=== PATIENT | female | born 1960 | race Caucasian/White ===

== ENCOUNTER 2018-01-07 13:09 | Emergency (ER) | payer OTHER ==
[~2018-01-07] VITALS: Ht 172.7 cm; Wt 104.6 kg
[2018-01-07 13:31] VITALS: Ht 172.7 cm; Wt 104.6 kg
[2018-01-07] MEDS ORDERED: SODIUM CHLORIDE 0.9% 500ML 500 ML IV STA (13:46)
[2018-01-07] MEDS ORDERED: ONDANSETRON INJ 2 MG/ML 2 ML VIAL IV STA (13:46)
[2018-01-07] MEDS ORDERED: METHYLPREDNISOLONE 125 MG VIAL IV STA (13:46)
[2018-01-07] MEDS ORDERED: KETOROLAC TROMETHAMINE 30 MG/ML VIAL IV STA (13:46)
[2018-01-07] MEDS ORDERED: ACETAMINOPHEN 500 MG TAB PO STA (13:46)
--- NOTE | 2018-01-07 13:50 | EMERGENCY ROOM VISIT NOTE ---
History First contact with patient: 13:36 Chief Complaint: FLU LIKE SX Stated Complaint: FLU History of Present Illness The patient is a 57 year old female who presents to the Emergency Room with complaints of flulike symptoms for the last 3 days. The patient also reports a fever 101F. She has had a mildly productive cough. The patient has a history of asthma. She started a Z-Steve and has been taking her nebulizer treatments with minimal relief. She is feeling fairly winded particularly with exertion. She denies any chest pain. She has been nauseated without vomiting. Review of Systems 10 system review performed and negative unless noted in HPI or below Past Medical/Surgical History Asthma, fibromyalgia Social History Smoking Status: Former Smoker Housing Status: lives with significant other Current/Historical Medications Scheduled Canagliflozin (Invokana), Unknown Dose PO DAILY Fluticasone Prop/Salmeterol (Advair Diskus 100/50 60 Dose), 1 PUFF INH BID Gabapentin (Neurontin), 800 MG PO BID Oseltamivir (Tamiflu), 75 MG PO BID Pantoprazole (Protonix), 20 MG PO BID Prednisone (Prednisone), 50 MG PO DAILY Pregabalin (Lyrica), 75 MG PO BID Propranolol (Inderal), 20 MG PO BID Ranitidine Hcl (Zantac), 300 MG PO HS Sitagliptin (Januvia), Unknown Dose PO DAILY Scheduled PRN Albuterol Sulf (Albuterol Sulfate), 1 VIAL INH Q4 PRN for SOB/Wheezing Ipratropium-Albuterol (Combivent Respimat), 1 PUFFS INH QID PRN for SOB/Wheezing Physical Exam Vital Signs Date Time Temp Pulse Resp B/P (MAP) Pulse Ox O2 Delivery O2 Flow Rate FiO2 01/07/18 16:10 89 20 130/64 91 01/07/18 15:53 90 24 95 Nasal Cannula 3.0 01/07/18 15:46 100 24 88 Room Air 01/07/18 15:18 36.6 98 18 139/51 95 Nasal Cannula 3.0 01/07/18 14:36 92 Nasal Cannula 3.0 01/07/18 14:34 91 Nasal Cannula 2.0 01/07/18 14:33 89 Room Air 01/07/18 14:27 101 01/07/18 14:20 98 21 143/65 97 Nebulizer 01/07/18 13:31 37.8 111 20 138/64 92 Room Air Physical Exam VITALS: Vitals are noted on the nurse's note and reviewed by myself. Vital signs stable. GENERAL: 57-year-old female, mildly ill in appearance, obese,, in no acute distress, nondiaphoretic, well-developed well-nourished. SKIN: The skin was without rashes, erythema, edema, or bruising. HEAD: Normocephalic atraumatic. MOUTH: Mucous membranes slightly dry NECK: Supple without nuchal rigidity. No lymphadenopathy. Cervical spine is nontender. No JVD. HEART: Regular rate and rhythm without murmurs gallops or rubs. LUNGS: Decreased breath sounds at the bases bilaterally. Mild diffuse wheeze. I'll tachypnea. ABDOMEN: Positive bowel sounds x 4.Soft, nontender, without organomegaly. No guarding or rebound tenderness. MUSCULOSKELETAL: No muscle atrophy, erythema, or edema noted. . Strength 5/5 throughout. NEURO: Patient was alert and oriented to person place and time. Normal sensation to touch. No focal neurological deficits. Medical Decision & Procedures ER Provider Diagnostic Interpretation: CXR IMPRESSION: No acute process. Minimal platelike atelectasis left base. The above report was generated using voice recognition software. It may contain grammatical, syntax or spelling errors. Electronically signed by: Ron Crockett M.D. 01/07/2018 3:15 PM Dictated Date/Time: 01/07/2018 3:15 PM Laboratory Results 01/07/18 14:00 Red Blood Count 4.78, Mean Corpuscular Volume 88.9, Mean Corpuscular Hemoglobin 29.3, Mean Corpuscular Hemoglobin Concent 32.9, Mean Platelet Volume 9.6, Neutrophils (%) (Auto) 73.5, Lymphocytes (%) (Auto) 17.1, Monocytes (%) (Auto) 7.6, Eosinophils (%) (Auto) 1.2, Basophils (%) (Auto) 0.2, Neutrophils # (Auto) 6.07, Lymphocytes # (Auto) 1.41, Monocytes # (Auto) 0.63, Eosinophils # (Auto) 0.10, Basophils # (Auto) 0.02 01/07/18 14:00 Test 01/07/18 14:00 01/07/18 14:25 01/07/18 15:25 White Blood Count 8.26 K/uL (4.8-10.8) Red Blood Count 4.78 M/uL (4.2-5.4) Hemoglobin 14.0 g/dL (12.0-16.0) Hematocrit 42.5 % (37-47) Mean Corpuscular Volume 88.9 fL (80-100) Mean Corpuscular Hemoglobin 29.3 pg (25-34) Mean Corpuscular Hemoglobin Concent 32.9 g/dl (32-36) Platelet Count 134 K/uL (130-400) Mean Platelet Volume 9.6 fL (7.4-10.4) Neutrophils (%) (Auto) 73.5 % Lymphocytes (%) (Auto) 17.1 % Monocytes (%) (Auto) 7.6 % Eosinophils (%) (Auto) 1.2 % Basophils (%) (Auto) 0.2 % Neutrophils # (Auto) 6.07 K/uL (1.4-6.5) Lymphocytes # (Auto) 1.41 K/uL (1.2-3.4) Monocytes # (Auto) 0.63 K/uL (0.11-0.59) Eosinophils # (Auto) 0.10 K/uL (0-0.5) Basophils # (Auto) 0.02 K/uL (0-0.2) RDW Standard Deviation 47.4 fL (36.4-46.3) RDW Coefficient of Variation 14.5 % (11.5-14.5) Immature Granulocyte % (Auto) 0.4 % Immature Granulocyte # (Auto) 0.03 K/uL (0.00-0.02) Anion Gap 9.0 mmol/L (3-11) Est Creatinine Clear Calc Drug Dose 82.4 ml/min Estimated GFR () 78.0 Estimated GFR (Non- 67.3 BUN/Creatinine Ratio 12.5 (10-20) Calcium Level 8.7 mg/dl (8.5-10.1) Influenza Type A Antigen POS for Influ A (NEG) Influenza Type B Antigen Neg for Influ B (NEG) Urine Color YELLOW Urine Appearance CLEAR (CLEAR) Urine pH 5.0 (4.5-7.5) Urine Specific [place] 1.045 (1.000-1.030) Urine Protein NEG (NEG) Urine Glucose (UA) 3+ (NEG) Urine Ketones 1+ (NEG) Urine Occult Blood NEG (NEG) Urine Nitrite NEG (NEG) Urine Bilirubin NEG (NEG) Urine Urobilinogen NEG (NEG) Urine Leukocyte Esterase NEG (NEG) Medications Administered Medications (Trade) Dose Ordered Sig/Hector Route Start Time Stop Time Status Last Admin Dose Admin Albuterol/ Ipratropium (Duoneb) 3 ml Q4 PRN INH 01/07/18 14:00 01/07/18 17:35 DC 01/07/18 14:12 3 ML Methylprednisolone Sodium Succinate (Solu-Medrol IV) 125 mg NOW STAT IV 01/07/18 13:46 01/07/18 13:48 DC 01/07/18 14:13 125 MG Sodium Chloride 500 ml @ 999 mls/hr Q31M STAT IV 01/07/18 13:46 01/07/18 14:16 DC 01/07/18 13:46 999 MLS/HR Ketorolac Tromethamine (Toradol Inj) 30 mg NOW STAT IV 01/07/18 13:46 01/07/18 13:48 DC 01/07/18 14:13 30 MG Ondansetron HCl (Zofran Inj) 4 mg NOW STAT IV 01/07/18 13:46 01/07/18 13:48 DC 01/07/18 14:12 4 MG Acetaminophen (Tylenol Tab) 1,000 mg NOW STAT PO 01/07/18 13:46 01/07/18 13:49 DC 01/07/18 14:12 1,000 MG Oseltamivir Phosphate (Tamiflu Cap) 75 mg NOW STAT PO 01/07/18 15:28 01/07/18 15:29 DC 01/07/18 15:48 75 MG ED Course Patient was seen and examined Vital signs including blood pressure were reviewed medications list was verified with patient Labs were obtained, and a saline lock was established The patient was medicated with Toradol, Tylenol and Zofran. She was given an hour-long DuoNeb. She was hydrated with 500 mL in normal saline. Imaging was performed and reviewed The patient was reassessed. She was much more control. We discussed her workup. She voiced understanding. She was given 1 dose of Tamiflu. Prior to discharge, the patient's vitals were rechecked. She was slightly hypoxic at 89% on room air. The patient was reassessed. She denies any shortness of breath. I recommended staying in the hospital overnight for further treatment given her hypoxia. The patient was feeling much better. She would much rather go home. She declined admission. I advised her to have very close follow-up with her primary care physician, and return for any worsening symptoms. She agrees to this plan. I reviewed discharge instructions the patient. They voiced understanding and had no further questions. Medical Decision Differential diagnosis: Bronchitis, pneumonia, strep pharyngitis, viral pharyngitis, influenza This patient is a 57-year-old female that presents to the emergency department with fever and flulike symptoms for the last 3 days. She has a history of asthma. On exam, she was mildly acutely ill. Her oxygen was in the low 90s. Her workup revealed a positive influenza A. There is no pneumonia. The patient had good symptomatic relief in the emergency department. Given her history of asthma, she will be treated with Tamiflu and steroids. Prior to discharge, the patient's vitals were rechecked, and she was slightly hypoxic at 89% on room air. She was however asymptomatic. I recommended admitting her to the hospital for further treatment. She politely declined. She would rather be discharged home with very close follow-up. She was also advised to return to the emergency department with any worsening symptoms. This chart was completed in part utilizing [employer] Speech Voice Recognition software. Attempts were made to minimize the grammatical errors, random word insertions, pronoun errors and incomplete sentences. Any formal questions or concerns about the content, text or information contained within the body of this dictation should be directly addressed to the provider for clarification. Medication Reconcilliation Current Medication List: was personally reviewed by me Blood Pressure Screening Patient's blood pressure: Normal blood pressure Impression Primary Impression: Influenza A Departure Information Dispostion Home / Self-Care Condition FAIR Prescriptions Oseltamivir (Tamiflu) 75 Mg Cap 75 MG PO BID for 5 Days, #10 CAP Prov: Lucila Salmeron PA-C 01/07/18 Prednisone (Prednisone) 50 Mg Tab 50 MG PO DAILY for 4 Days, #4 TAB Prov: Lucila Salmeron PA-C 01/07/18 Patient Instructions ED Influenza , My [facility] Additional Instructions You were evaluated in the emergency department for fever and cough. You tested positive for influenza A. This is a highly contagious illness. Please avoid public places/work/school for at least 48 hours. Wash your hands frequently. Please take entire course of Tamiflu Please take steroids as directed Please use your albuterol nebulizer treatments every 4-6 hours for the next 48 hours. Then, they may be used on an as-needed basis. Ibuprofen 800 mg and/or Tylenol 1000 mg every 8 hours for body aches and fever You may also alternate these medications for more effective pain relief: Ibuprofen --4 HRS--> Tylenol --4 HRS--> ibuprofen --4 HRS--> Tylenol .... With your history of asthma, it is very important for you to be rechecked by your primary care physician within the next 48 hours Please do not hesitate to return to the emergency department with any new, worsening or concerning symptoms
[2018-01-07] MEDS ORDERED: ALBUT/IPRATROP 3MG/0.5MG NEB 3 ML VIAL INH PRN (14:00)
[2018-01-07 14:13] LABS: BASO % 0.2 %; BASO ABS # 0.02 K/uL (0-0.2); EOS % 1.2 %; HEMATOCRIT 42.5 % (37-47); IG# 0.03 K/uL (0.00-0.02); LYMPH % 17.1 %; LYMPH ABS # 1.41 K/uL (1.2-3.4); MEAN CELL VOLUME 88.9 fL (80-100); MEAN CORPUSCULAR HEMOGLOBIN 29.3 pg (25-34); MEAN CORPUSCULAR HGB CONC 32.9 g/dl (32-36); MEAN PLATELET VOLUME 9.6 fL (7.4-10.4); MONO % 7.6 %; MONO ABS # 0.63 K/uL (0.11-0.59); NEUT % 73.5 %; NEUT ABS # 6.07 K/uL (1.4-6.5); PLATELET COUNT 134 K/uL (130-400); RED CELL DISTRIBUTION WIDTH CV 14.5 % (11.5-14.5); RED CELL DISTRIBUTION WIDTH SD 47.4 fL (36.4-46.3); WHITE BLOOD COUNT 8.26 K/uL (4.8-10.8)
[2018-01-07 14:36] VITALS: O2SAT 92
[2018-01-07 14:39] LABS: CALCIUM 8.7 mg/dl (8.5-10.1); CREATININE 0.93 mg/dl (0.60-1.20); POTASSIUM 3.8 mmol/L (3.5-5.1)
[2018-01-07 15:15] LABS: INFLUENZA B ANTIGEN Neg for Influ B (NEG)
--- NOTE | 2018-01-07 15:17 | DIAGNOSTIC IMAGING REPORT ---
CHEST 2 VIEWS ROUTINE CLINICAL HISTORY: cough fever hx asthma dyspnea COMPARISON STUDY: No previous studies for comparison. FINDINGS: Minimal platelike atelectasis left base. Lungs otherwise are clear. Diaphragms smooth. Heart top normal in terms of size. IMPRESSION: No acute process. Minimal platelike atelectasis left base. The above report was generated using voice recognition software. It may contain grammatical, syntax or spelling errors. Electronically signed by: Ron Crockett M.D. 01/07/2018 3:15 PM Dictated Date/Time: 01/07/2018 3:15 PM
[2018-01-07 15:18] VITALS: TEMP 36.6
[2018-01-07] MEDS ORDERED: OSELTAMIVIR PHOSPHATE 75 MG CAP PO STA (15:28)
[2018-01-07] MEDS ORDERED: PRT/20 PO (15:41)
[2018-01-07] MEDS ORDERED: RANI300T2 PO (15:41)
[2018-01-07] MEDS ORDERED: PROP20TA67 PO (15:41)
[2018-01-07] MEDS ORDERED: SITA25TA PO (15:41)
[2018-01-07] MEDS ORDERED: PREG1CAP28 PO (15:41)
[2018-01-07] MEDS ORDERED: CANA1TAB PO (15:41)
[2018-01-07] MEDS ORDERED: IPRA1AER2 INH (15:41)
[2018-01-07] MEDS ORDERED: ADVIN10/60 INH (15:41)
[2018-01-07] MEDS ORDERED: ALBINS INH (15:41)
[2018-01-07] MEDS ORDERED: GABA800T PO (15:41)
[2018-01-07] MEDS ORDERED: OSEL75CA12 PO (15:47)
[2018-01-07] MEDS ORDERED: PRED50TA PO (15:47)
[2018-01-07 16:10] VITALS: BP 130/64; PULSE 89; O2SAT 91
== END 2018-01-07 16:10 | disposition home or self-care (01) ==
LOC: C.EDB 13:13
DX: J10.2 Influenza due to other identified influenza virus with gastrointestinal manifestations (principal); J45.909 Unspecified asthma, uncomplicated; M79.7 Fibromyalgia; Z87.891 Personal history of nicotine dependence

== ENCOUNTER 2021-08-25 11:56 | Inpatient (IN) ==
[2021-08-25] MEDS ORDERED: dexAMETHasone**PF** 10 MG/ML VIAL IV ONE (15:15)
[2021-08-25] MEDS ORDERED: IPRATROPIUM BROMIDE/ALBUTEROL respimat INH INH STA (15:15)
[2021-08-25] MEDS ORDERED: FAMOTIDINE 20MG IV PUSH 20 MG/5 ML SYR IV STA (15:17)
[2021-08-25] MEDS ORDERED: guaiFENesin 600 MG TABCR PO STA (15:17)
[2021-08-25] MEDS ORDERED: ONDANSETRON INJ 2 MG/ML 2 ML VIAL IV STA (15:17)
[2021-08-25] MEDS ORDERED: SODIUM CHLORIDE 0.9% 1000ML 2,000 ML IV ONE (15:19)
--- NOTE | 2021-08-25 15:57 | XRay Report ---
XR chest 1V portable HISTORY: Atypical Chest Pain COMPARISON: Chest 08/23/2021 FINDINGS: Patchy bibasilar airspace opacities have slightly progressed. This is also a patchy right u pper lobe airspace opacity. This likely represents a multifocal pneumonia secondary to a viral proces s. The heart remains borderline enlarged. No pleural effusions. No pneumothorax. IMPRESSION: Slight progression of the patchy bilateral airspace opacities. This likely represents a multifocal vi ral pneumonia. ACT 112: Negative or not required by law. Electronically signed by: Chance Echevarria M.D. 08/25/2021 3:55 PM
[2021-08-25 16:21] LABS: Basophils # (auto) 0.01 K/uL (0-0.2); Basophils % (auto) 0.1 %; Hematocrit (blood only) 42.4 % (37-47); Hemoglobin 14.3 g/dL (12.0-16.0); Immature Granulocytes # (auto) 0.02 K/uL (0.00-0.02); Immature Granulocytes % (auto) 0.2 %; Lymphocytes # (auto) 1.18 K/uL (1.2-3.4); Lymphocytes % (auto) 13.4 %; Mean Corpuscular Hemoglobin 29.4 pg (25-34); Mean Corpuscular Hgb Conc 33.7 g/dL (32-36); Mean Corpuscular Volume 87.2 fL (80-100); Mean Platelet Volume 10.1 fL (7.4-10.4); Monocytes # (auto) 0.44 K/uL (0.11-0.59); Neutrophils # (auto) 7.17 K/uL (1.4-6.5); Neutrophils % (auto) 81.3 %; Platelet Count 176 K/uL (130-400); RDW Coefficient of Variation 14.1 % (11.5-14.5); RDW Standard Deviation 45.1 fL (36.4-46.3); Red Blood Count 4.86 M/uL (4.2-5.4); White Blood Count 8.82 K/uL (4.8-10.8)
[2021-08-25 16:42] LABS: Alanine Aminotransferase 29 U/L (12-78); Albumin Level 3.1 gm/dl (3.4-5.0); Aspartate Aminotransferase 35 U/L (15-37); BUN Creatinine Ratio 13.9 (10-20); Bilirubin Direct 0.2 mg/dl (0-0.2); Blood Urea Nitrogen 10 mg/dl (7-18); Calcium 9.3 mg/dl (8.5-10.1); Carbon Dioxide 18 mmol/L (21-32); Chloride 102 mmol/L (98-107); Est GFR (African American) 101.6 ml/min; Est GFR (Non-African American) 87.7 ml/min; Glucose 122 mg/dl (70-99); Lipase 74 U/L (73-393); Potassium 3.6 mmol/L (3.5-5.1); Sodium 135 mmol/L (136-145)
[2021-08-25 16:45] LABS: Albumin Globulin Ratio 0.6 (0.9-2); Alkaline Phosphatase 77 U/L (45-117); Bilirubin,Total 0.4 mg/dl (0.2-1); Globulin 5.5 gm/dl (2.5-4.0); NT Pro B Type Natriuretic Pept 131 pg/ml (0-900); Phosphorus 2.3 mg/dl (2.5-4.9); Total Protein 8.6 gm/dl (6.4-8.2); Troponin I < 0.015 ng/ml (0-0.045)
--- NOTE | 2021-08-25 19:00 | Emergency Department Note ---
Impression & Plan Pneumonia due to COVID-19 virus, Hypoxia, Gastroenteritis due to COVID-19 virus, Dehydration ED Provider Note NAME: JAVAN CALVILLO AGE: 61 SEX: F ARRIVES VIA: Ambulance INFORMANT: Patient, ED PROVIDER(S): Guillaume Bills MD CHIEF COMPLAINT: Covid-19, SOB, PLAN: Disposition: Admit MEDICAL DECISION MAKING: The patient is a pleasant 61-year-old woman with a past medical history of diabetes, chronic fatigue syndrome, fibromyalgia, asthma who presents to the emergency department with worsening cough, congestion, shortness of breath, n ausea, vomiting, diarrhea in the setting of being diagnosed with COVID-19 on 08/23 when she was seen emergency department for the symptoms. Patient reports she did receive her first vaccine in April but then was reluctant to get her second dose in the series due to family member sharing "information that worried her about the vaccine". Nevertheless she then decided to get the second dose several weeks ago. Reports her had similar symptoms first and so believes she may have got it from him. She is otherwise unaware where they may have been exposed to COVID-19. On arrival patient is in no acute distress, afebrile heart in the 100s and vital signs otherwise stable. She appears clinically dry. She has scant intermittent wheezes. Abdomen is benign. EKG without overt acute ischemia. Chest x-ray demonstrates progression of airspace opacities consistent with COVID-19 pneumonia. WBC, H/H platelets within normal limits. Bicarbonate 18 consistent with the patient's clinically dry appearance. Electrolytes without abnormal allergy. LFTs unremarkable. Troponin negative/undetectable. BNP wnl. Lipase not elevated. Upon reevaluation the patient did feel improved after IV fluid hydration, famotidine, Mucinex, Zofran, dexamethasone and albuterol MDI. However her O2 saturation was noted to go as low as 91% on room air and so patient was in agreement with plan for admission for further management. She was placed on 2 L nasal cannula. Case was discussed with Dr. Piper, [facility] hospitalist, who will evaluate the patient for admission. Triage Nursing notes reviewed and agree them. Prior medical records reviewed Vital Signs: reviewed and remarkable for no significant abnormalities Differential diagnosis: Reactive airway disease, pneumonia, pneumothorax, COPD, CHF, infections, cardiac ischemia, pulmonary embolism, musculoskeletal, gastrointestinal, as well as other pathologies. ER treatment provided: See below. Diagnostics interpreted by me: ECG: Sinus tachycardia, 101 bpm, no ectopy, nonspecific T wave abnormality, no overt ST elevation or depression. Cardiac Monitoring: An order for continuous cardiac monitoring was placed and demonstrated sinus tachycardia, 101 bpm, no ectopy. Laboratory studies: See below Imaging studies: See below Consultation(s): Case was discussed with Dr. Piper, [facility] hospitalist, who will evaluate the patient for admission. HPI: The patient is a pleasant 61-year-old woman with a past medical history of diabetes, chronic fatigue syndrome, fibromyalgia, asthma who presents to the emergency department with worsening cough, congestion, shortness of breath, nausea, vomiting, diarrhea in the setting of being diagnosed with COVID-19 on 08/23 when she was seen emergency department for the symptoms. Patient reports she did receive her first vaccine in April but then was reluctant to get her second dose in the series due to family member sharing "information that worried her about the vaccine". Nevertheless she then decided to get the second dose several weeks ago. Reports her had similar symptoms first and so believes she may have got it from him. She is otherwise unaware where they may have been exposed to COVID-19. ROS: See above HPI for pertinent positives & negatives. A total of 10 systems reviewed and were otherwise negative. PAST MEDICAL HISTORY:See Below PAST SURGICAL HISTORY:See Below FAMILY HISTORY:See Below SOCIAL HISTORY:See Below HOME MEDICATIONS:See Below ALLERGIES:See Below VITALS:See Below PHYSICAL EXAMINATION: GENERAL: Awake, alert, uncomfortable-appearing, in no distress HENT: Normocephalic, atraumatic. Oropharynx with dry/cracked MM. EYES: Normal conjunctiva. Sclera non-icteric. NECK: Supple. No nuchal rigidity. FROM. No JVD. RESPIRATORY: Intermittent wheezes, otherwise clear. CARDIAC: Tachycardic rate, normal rhythm. Extremities warm and well perfused. Pulses equal. ABDOMEN: Soft, non-distended. No tenderness to palpation. No rebound or guarding. No masses. RECTAL: Deferred. MUSCULOSKELETAL: Chest examination reveals no tenderness. The back is symm etrical on inspection without obvious abnormality. There is no CVA tenderness to palpation. No joint edema. LOWER EXTREMITIES: Calves are equal size bilaterally and non-tender. No edema. No discoloration. NEURO: Normal sensorium. No sensory or motor deficits noted. SKIN: No rash or jaundice noted. 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: No Beliefs That Will Affect Care: None Current Living Situation: Spouse current occupational status: retired Other Information That Helps Us Care for You: No Feels Safe at Home: Yes Safety Concerns: Feels Safe At This Time Assistive Devices: None Allergies Allergies Allergy/AdvReac Type Severity Reaction Status Date / Time Penicillins Allergy Unknown CAN'T Verified 08/25/21 16:37 REMEMBER oxycodone AdvReac Intermediate Gastrointestinal Verified 08/25/21 16:37 Upset Sulfa (Sulfonamide AdvReac Intermediate Gastrointestinal Verified 08/25/21 16:37 Antibiotics) Upset sulfamethoxazole AdvReac Intermediate Gastrointestinal Verified 08/25/21 16:37 Upset Home Meds Home Medications Medication Instructions Recorded Confirmed ascorbic acid (vitamin C) 500 mg 500 mg PO DAILY 08/24/21 08/25/21 tablet (Vitamin C) aspirin 81 mg tablet,delayed 81 mg PO DAILY 08/24/21 08/25/21 release cholecalciferol (vitamin D3) 50 3,000 mcg PO DAILY 08/24/21 08/25/21 mcg (2,000 unit) capsule (Vitamin D3) duloxetine 30 mg capsule,delayed 30 mg PO DAILY 08/24/21 08/25/21 release duloxetine 60 mg capsule,delayed 60 mg PO DAILY 08/24/21 08/25/21 release fluticasone 500 mcg-salmeterol 50 1 inh INHALATION BID 08/24/21 08/25/21 mcg/dose blistr powdr for inhalation fluticasone propionate 50 1 spray INTRANASAL BID PRN 08/24/21 08/25/21 mcg/actuation nasal spray,suspension gabapentin 800 mg tablet 800 mg PO TID 08/24/21 08/25/21 ibuprofen 200 mg tablet 400 - 600 mg PO DIRECTED PRN 08/24/21 08/25/21 ipratropium 20 mcg-albuterol 100 1 puff INHALATION DAILY 08/24/21 08/25/21 mcg/actuation mist for inhalation (Combivent Respimat) pantoprazole 20 mg tablet,delayed 20 mg PO DAILY 08/24/21 08/25/21 release propranolol 40 mg tablet 40 mg PO DAILY 08/24/21 08/25/21 semaglutide (Ozempic) 0.25 mg SUBCUT WK 08/24/21 08/25/21 sulindac 200 mg tablet 200 mg PO BID PRN 08/24/21 08/25/21 trazodone 150 mg tablet 150 mg PO HS 08/24/21 08/25/21 empagliflozin 25 mg tablet 25 mg PO DAILY 08/25/21 08/25/21 (Jardiance) Previous Rx's Medication Instructions Recorded albuterol sulfate 90 mcg/actuation 2 inh INHALATION Q4H PRN #8.5 g 08/24/21 aerosol inhaler Results & Data (ED) Vital Signs Vital Signs - 24 hr 08/25/21 11:59 08/25/21 16:00 08/25/21 16:17 Temperature 36.9 C Temperature Source Skin Pulse Rate 109 H 101 H Pulse Rate [Right Finger] 97 H Pulse Rate from SpO2 Sensor Pulse Rhythm [Right Finger] Regular Pulse Strength [Right Finger] Normal Respiratory Rate 18 29 H 22 Respiratory Effort / Characteristics Non-Labored Respiratory Depth Normal Respiratory Pattern Blood Pressure 133/61 133/71 Blood Pressure [Left Arm] 133/71 Blood Pressure Mean 85 91 Blood Pressure Mean [Left Arm] 91 Blood Pressure Position [Left Arm] Lying Pulse Oximetry 96 93 93 Oxygen Delivery Method Room Air Room Air Sepsis Recent Fever Within 48 Hours Yes Sepsis New/Unexplained Change in Mental Status No Sepsis Action Taken by Nursing No Action Required 08/25/21 16:19 08/25/21 16:22 08/25/21 17:01 Temperature Temperature Source Pulse Rate Pulse Rate [Right Finger] 98 H Pulse Rate from SpO2 Sensor Pulse Rhythm [Right Finger] Regular Pulse Strength [Right Finger] Respiratory Rate 20 Respiratory Effort / Characteristics Non-Labored Non-Labored Respiratory Depth Normal Normal Respiratory Pattern Regular Blood Pressure Blood Pressure [Left Arm] 133/71 Blood Pressure Mean Blood Pressure Mean [Left Arm] 91 Blood Pressure Position [Left Arm] Pulse Oximetry 93 93 Oxygen Delivery Method Room Air Room Air Sepsis Recent Fever Within 48 Hours Sepsis New/Unexplained Change in Mental Status Sepsis Action Taken by Nursing 08/25/21 17:54 08/25/21 18:43 08/25/21 19:11 Temperature Temperature Source Pulse Rate 94 H Pulse Rate [Right Finger] 95 H 93 H Pulse Rate from SpO2 Sensor Pulse Rhythm [Right Finger] Pulse Strength [Right Finger] Respiratory Rate 20 24 16 Respiratory Effort / Characteristics Respiratory Depth Normal Respiratory Pattern Blood Pressure 133/71 Blood Pressure [Left Arm] 133/71 133/71 Blood Pressure Mean 91 Blood Pressure Mean [Left Arm] 91 91 Blood Pressure Position [Left Arm] Pulse Oximetry 93 92 96 Oxygen Delivery Method Room Air Room Air Sepsis Recent Fever Within 48 Hours Sepsis New/Unexplained Change in Mental Status Sepsis Action Taken by Nursing 08/25/21 19:12 Temperature Temperature Source Pulse Rate 93 H Pulse Rate [Right Finger] Pulse Rate from SpO2 Sensor 94 H Pulse Rhythm [Right Finger] Pulse Strength [Right Finger] Respiratory Rate 24 Respiratory Effort / Characteristics Respiratory Depth Respiratory Pattern Blood Pressure Blood Pressure [Left Arm] Blood Pressure Mean Blood Pressure Mean [Left Arm] Blood Pressure Position [Left Arm] Pulse Oximetry 96 Oxygen Delivery Method Sepsis Recent Fever Within 48 Hours Sepsis New/Unexplained Change in Mental Status Sepsis Action Taken by Nursing Laboratory Data Attestation: I reviewed the patient's lab results. Result diagrams: 08/25/21 15:14 08/25/21 15:14 Lab Results 08/25/21 08/25/21 08/25/21 Range/Units 15:14 15:14 16:00 WBC 8.82 (4.8-10.8) K/uL RBC 4.86 (4.2-5.4) M/uL Hgb 14.3 (12.0-16.0) g/dL Hct 42.4 (37-47) % MCV 87.2 (80-100) fL MCH 29.4 (25-34) pg MCHC 33.7 (32-36) g/dL RDW Std Deviation 45.1 (36.4-46.3) fL RDW Coeff of Macy 14.1 (11.5-14.5) % Plt Count 176 (130-400) K/uL MPV 10.1 (7.4-10.4) fL Immature Gran % (Auto) 0.2 % Neut % (Auto) 81.3 % Lymph % (Auto) 13.4 % [place] % (Auto) 5.0 % Eos % (Auto) 0.0 % Baso % (Auto) 0.1 % Neut # (Auto) 7.17 H (1.4-6.5) K/uL Lymph # (Auto) 1.18 L (1.2-3.4) K/uL [place] # (Auto) 0.44 (0.11-0.59) K/uL Eos # (Auto) 0.00 (0-0.5) K/uL Baso # (Auto) 0.01 (0-0.2) K/uL Immature Gran # (Auto) 0.02 (0.00-0.02) K/uL Sodium 135 L (136-145) mmol/L Potassium 3.6 (3.5-5.1) mmol/L Chloride 102 (98-107) mmol/L Carbon Dioxide 18 L (21-32) mmol/L Anion Gap 15.0 H (3-11) BUN 10 (7-18) mg/dl Creatinine 0.73 (0.6-1.2) mg/dl Est Cr Clr Drug Dosing Not Reportable Est GFR ( Amer) 101.6 ml/min Est GFR (Non-Af Amer) 87.7 ml/min BUN/Creatinine Ratio 13.9 (10-20) Glucose 122 H (70-99) mg/dl Calcium 9.3 (8.5-10.1) mg/dl Phosphorus 2.3 L (2.5-4.9) mg/dl Magnesium 2.0 (1.8-2.4) mg/dl Total Bilirubin 0.4 (0.2-1) mg/dl Direct Bilirubin 0.2 (0-0.2) mg/dl AST 35 (15-37) U/L ALT 29 (12-78) U/L Alkaline Phosphatase 77 (45-117) U/L Troponin I < 0.015 (0-0.045) ng/ml C-Reactive Protein 12.40 H (0-0.29) mg/dl NT-Pro-B Natriuret Pep 131 (0-900) pg/ml Total Protein 8.6 H (6.4-8.2) gm/dl Albumin 3.1 L (3.4-5.0) gm/dl Globulin 5.5 H (2.5-4.0) gm/dl Albumin/Globulin Ratio 0.6 L (0.9-2) Lipase 74 (73-393) U/L Administered Medications Ascorbic Acid (Ascorbic Acid 500 Mg Tab) 500 mg PO BID YOBANI Stop: 09/24/21 20:59 Last Admin: 08/25/21 22:14 Dose: 500 mg Documented by: [id number] Enoxaparin Sodium (Enoxaparin Inj 40 Mg/0.4 Ml Syr) 40 mg SQ HS YOBANI Stop: 09/24/21 20:59 Last Admin: 08/25/21 22:13 Dose: 40 mg Documented by: [id number] Gabapentin (Gabapentin 800 Mg Tab) 800 mg PO TID YOBANI Stop: 09/24/21 20:59 Last Admin: 08/25/21 22:13 Dose: 800 mg Documented by: [id number] Discontinued Medications Albuterol (Ipratropium [place]/Albuterol Respimat Inh) 2 puffs INH NOW STA Stop: 08/25/21 15:16 Last Admin: 08/25/21 16:06 Dose: 2 puffs Documented by: [id number] Dexamethasone Sodium Phosphate (DexamethasonePf 10 Mg/Ml Vial) 10 mg IV NOW ONE Stop: 08/25/21 15:16 Last Admin: 08/25/21 16:04 Dose: 10 mg Documented by: [id number] Guaifenesin (Guaifenesin 600 Mg Tabcr) 600 mg PO NOW STA Stop: 08/25/21 15:18 Last Admin: 08/25/21 16:07 Dose: 600 mg Documented by: [id number] Famotidine (Pepcid 20mg Iv Push) 20 mg in 5 mls @ 2.5 mls/min IV NOW STA Stop: 08/25/21 15:18 Last Admin: 08/25/21 16:06 Dose: 2.5 mls/min Documented by: [id number] Sodium Chloride (Nss 1000ml) 2,000 mls @ 999 mls/hr IV .Q2H1M ONE Stop: 08/25/21 17:19 Last Infusion: 08/25/21 17:55 Dose: 0 mls/hr Documented by: [id number] Admin: 08/25/21 16:02 Dose: 999 mls/hr Documented by: [id number] Remdesivir 200 mg/ Sodium (Chloride) 250 mls @ 125 mls/hr IV ONE STA; Protocol Stop: 08/25/21 22:12 Last Admin: 08/25/21 21:59 Dose: 125 mls/hr Documented by: [id number] Ondansetron HCl (Ondansetron Inj 2 Mg/Ml 2 Ml Vial) 4 mg IV NOW STA Stop: 08/25/21 15:18 Last Admin: 08/25/21 16:03 Dose: 4 mg Documented by: [id number] Imaging Data Radiologist's Impression: Chest X-Ray 08/25/21 15:14 XR chest 1V portable HISTORY: Atypical Chest Pain COMPARISON: Chest 08/23/2021 FINDINGS: Patchy bibasilar airspace opacities have slightly progressed. This is also a patchy right upper lobe airspace opacity. This likely represents a multifocal pneumonia secondary to a viral process. The heart remains borderline enlarged. No pleural effusions. No pneumothorax. IMPRESSION: Slight progression of the patchy bilateral airspace opacities. This likely represents a multifocal viral pneumonia. ACT 112: Negative or not required by law. Electronically signed by: Chance Echevarria M.D. 08/25/2021 3:55 PM Discharge Plan Visit Data Chief Complaint: Illness Stated Complaint: ILLNESS ED Provider: Guillaume Bills Discharge Problem: Pneumonia due to COVID-19 virus, Hypoxia, Gastroenteritis due to COVID-19 virus, Dehydration Patient Disposition: Admitted As Inpatient Discharge Instructions Interventions: ED Discharge Assessment Last Done: 08/25/21 20:15
--- NOTE | 2021-08-25 19:28 | History & Physical Report ---
Date of Service August 25, 2021 Assessment & Plan (1) Pneumonia due to COVID-19 virus: Plan: Started on Decadron this evening and will continue with this daily. Will load with remdesivir with symptoms ongoing for only 6 days at this point. Continue supplemental oxygen for goal 90% or above. Encouraged patient to prone and taught her how to do this and the importance of doing this. She verbalized understanding with intent to comply. Continue supportive care with Imodium as needed for diarrhea and guaifenesin with codeine as needed for cough. No evidence of sepsis. Will check and trend CRP. (2) Asthma: Plan: No evidence of exacerbation at this point. Continue home inhalers including Advair, Combivent as needed. (3) Fibromyalgia: Plan: Continue home duloxetine with gabapentin. (4) Chronic fatigue syndrome: Plan: Supportive care as needed. (5) DMII (diabetes mellitus, type 2): Plan: Hold Ozempic and Jardiance per home regimen. Continue with basal bolus insulin with carb coverage and correction factor. Expect an increased need with ongoing steroids. (6) DVT prophylaxis: Plan: Lovenox Full code Disposition-to med telemetry [facility] Present Illness Chief Complaint: worsening covid symptoms Primary Care Provider: Lisa Umana MD Patient is a 61-year-old female with diabetes, chronic fatigue syndrome, a [facility] who was diagnosed with COVID-19 2 days ago. Symptoms have been ongoing for the past 6 days. She specifically reports fevers, chills, cough, generalized malaise, diarrhea, headache, occasional vomiting today. She was sent home from the ER as she was not hypoxic, however, tonight she is exhibiting worsened Covid symptoms generally and is 91% on room air. Medication history includes a recent increase in Ozempic from 0.25 to 0.5 mg q. weekly, however, she has not started this new dose yet. She was also given a Z-Steve and Decadron to take at home, but did not take this. She reports poor oral intake and dry mouth. She reports feeling as if she were going to fall at home with worsening weakness. Allergies Allergy/AdvReac Type Severity Reaction Status Date / Time Penicillins Allergy Unknown CAN'T Verified 08/25/21 16:37 REMEMBER oxycodone AdvReac Intermediate Gastrointestinal Verified 08/25/21 16:37 Upset Sulfa (Sulfonamide AdvReac Intermediate Gastrointestinal Verified 08/25/21 16:37 Antibiotics) Upset sulfamethoxazole AdvReac Intermediate Gastrointestinal Verified 08/25/21 16:37 Upset Home Medications Medication Instructions Recorded Confirmed Type albuterol sulfate 90 mcg/actuation 2 inh INHALATION Q4H PRN #8.5 g 08/24/21 08/25/21 Rx aerosol inhaler ascorbic acid (vitamin C) 500 mg 500 mg PO DAILY 08/24/21 08/25/21 History tablet (Vitamin C) aspirin 81 mg tablet,delayed 81 mg PO DAILY 08/24/21 08/25/21 History release cholecalciferol (vitamin D3) 50 3,000 mcg PO DAILY 08/24/21 08/25/21 History mcg (2,000 unit) capsule (Vitamin D3) duloxetine 30 mg capsule,delayed 30 mg PO DAILY 08/24/21 08/25/21 History release duloxetine 60 mg capsule,delayed 60 mg PO DAILY 08/24/21 08/25/21 History release fluticasone 500 mcg-salmeterol 50 1 inh INHALATION BID 08/24/21 08/25/21 History mcg/dose blistr powdr for inhalation fluticasone propionate 50 1 spray INTRANASAL BID PRN 08/24/21 08/25/21 History mcg/actuation nasal spray,suspension gabapentin 800 mg tablet 800 mg PO TID 08/24/21 08/25/21 History ibuprofen 200 mg tablet 400 - 600 mg PO DIRECTED PRN 08/24/21 08/25/21 History ipratropium 20 mcg-albuterol 100 1 puff INHALATION DAILY 08/24/21 08/25/21 History mcg/actuation mist for inhalation (Combivent Respimat) pantoprazole 20 mg tablet,delayed 20 mg PO DAILY 08/24/21 08/25/21 History release propranolol 40 mg tablet 40 mg PO DAILY 08/24/21 08/25/21 History semaglutide (Ozempic) 0.25 mg SUBCUT WK 08/24/21 08/25/21 History sulindac 200 mg tablet 200 mg PO BID PRN 08/24/21 08/25/21 History trazodone 150 mg tablet 150 mg PO HS 09/28/21 09/29/21 History empagliflozin 25 mg tablet 25 mg PO DAILY 08/25/21 08/25/21 History (Jardiance) Past Med/Surg History Medical History (Updated 08/25/21 @ 20:29 by Elena Piper DO) Asthma Chronic fatigue syndrome Diabetes Fibromyalgia Surgical History (Updated 08/25/21 @ 19:39 by Elena Piper DO) H/O dilation and curettage H/O: S/P cholecystectomy S/P hernia surgery S/P PETER-BSO Family History (Updated 08/25/21 @ 19:37 by Elena Piper DO) Mother Pancreatic cancer Social History (Updated 08/25/21 @ 19:39 by Elena Piper DO) Smoking Status: Never smoker Second Hand Exposure: No; Hx Alcohol Use: No Hx Substance Use: No Current Living Situation: Spouse current occupational status: retired Feels Safe at Home: Yes Review of Systems Review of Systems: At least ten systems were reviewed and negative except as indicated in HPI above. Physical Exam Physical Exam: CONSTITUTIONAL: WNWD, vitals as above, generally NAD EYES: PERRL, normal conjunctivae, no scleral icterus ENT: external ear and nose normal, oropharynx clear, tongue with whitish appearance to it. NECK: trachea midline RESPIRATORY: Coarse crackles throughout all lung forrest, no rales or wheezes, normal respiratory effort CARDIOVASCULAR: regular rate and rhythm, S1 and 2 heard without murmurs, gallops or rubs, no JVD, no peripheral edema CHEST: inspection of chest was normal GASTROINTESTINAL: soft, nontender, ND, no guarding MUSCULOSKELETAL: strength 5/5 throughout, head is normocephalic and atraumatic SKIN: warm and dry NEUROLOGIC: No facial palsy, no dysarthria. CN 2-12 grossly intact, no sensory deficit, normal cognition, normal speech, no tremor. No gross focal deficit. PSYCHIATRIC: alert cooperative and oriented to person, place and time. Euthymic mood, makes good eye contact, language grossly intact, recent and remote memory grossly intact. Results & Data Results & Data ([facility]) Vital Signs (Past 12 Hours) Vital Signs Temp Pulse Pulse Resp BP BP Pulse Ox 08/25/21 19:11 93 H 16 133/71 96 08/25/21 18:43 95 H 24 133/71 92 08/25/21 17:54 94 H 20 133/71 93 08/25/21 17:01 98 H 20 133/71 93 08/25/21 16:19 93 08/25/21 16:17 97 H 22 133/71 93 08/25/21 16:00 101 H 29 H 133/71 93 08/25/21 11:59 36.9 C 109 H 18 133/61 96 Laboratory Results Short CBC 08/25/21 Range/Units 15:14 WBC 8.82 (4.8-10.8) K/uL Hgb 14.3 (12.0-16.0) g/dL Hct 42.4 (37-47) % Plt Count 176 (130-400) K/uL BMP 08/25/21 15:14 Sodium 135 L Potassium 3.6 Chloride 102 Carbon Dioxide 18 L BUN 10 Creatinine 0.73 Glucose 122 H Calcium 9.3 Cardiac Enzymes 08/25/21 Range/Units 15:14 Troponin I < 0.015 (0-0.045) ng/ml Liver Function 08/25/21 Range/Units 15:14 Total Bilirubin 0.4 (0.2-1) mg/dl Direct Bilirubin 0.2 (0-0.2) mg/dl AST 35 (15-37) U/L ALT 29 (12-78) U/L Alkaline Phosphatase 77 (45-117) U/L Albumin 3.1 L (3.4-5.0) gm/dl Diagnostic Findings Chest X-Ray 08/25/21 15:14 XR chest 1V portable HISTORY: Atypical Chest Pain COMPARISON: Chest 08/23/2021 FINDINGS: Patchy bibasilar airspace opacities have slightly progressed. This is also a patchy right upper lobe airspace opacity. This likely represents a multifocal pneumonia secondary to a viral process. The heart remains borderline enlarged. No pleural effusions. No pneumothorax. IMPRESSION: Slight progression of the patchy bilateral airspace opacities. This likely represents a multifocal viral pneumonia. ACT 112: Negative or not required by law. Electronically signed by: Chance Echevarria M.D. 08/25/2021 3:55 PM Code Status & VTE Plan VTE Prophylaxis Plan VTE Prophylaxis will be ordered: No
[2021-08-25] MEDS ORDERED: REMDESIVIR 200 MG in SODIUM CHLORIDE 0.9% 210 ML IV STA (20:13)
[2021-08-25] MEDS ORDERED: ONDANSETRON INJ 2 MG/ML 2 ML VIAL IV PRN (20:28)
[2021-08-25] MEDS ORDERED: IPRATROPIUM BROMIDE/ALBUTEROL respimat INH INH PRN (20:28)
[2021-08-25] MEDS ORDERED: ACETAMINOPHEN 325 MG TAB PO PRN (20:28)
[2021-08-25] MEDS ORDERED: IBUPROFEN 200 MG TAB PO PRN (20:28)
[2021-08-25] MEDS ORDERED: POLYETHYLENE (MIRALAX) 17 GM PACK PO PRN (20:28)
[2021-08-25] MEDS ORDERED: LOPERAMIDE HCL 2 MG CAP PO PRN (20:28)
[2021-08-25] MEDS ORDERED: traZODone HCL 50 MG TAB PO PRN (20:28)
[2021-08-25] MEDS ORDERED: GLUCOSE 40% GEL 15 GM TUBE PO PRN (20:29)
[2021-08-25] MEDS ORDERED: DEXTROSE 50% 50 ML SYRINGE IV PRN (20:29)
[2021-08-25] MEDS ORDERED: GLUCAGON FOR INJ 1 MG VIAL SQ PRN (20:29)
[2021-08-25] MEDS ORDERED: GLUCOSE 10 TABS/TUBE PO PRN (20:29)
[2021-08-25] MEDS ORDERED: CARBOHYDRATES FOR HYPOGLYCEMIA PO PRN (20:29)
[2021-08-25] MEDS ORDERED: Albuterol HFA 8 GM Inhaler (Combivent Respimat P&T Subs) INH PRN (21:08)
[2021-08-25] MEDS ORDERED: Ipratropium HFA Inhaler (Combivent Respimat P&T Subs) INH PRN (21:09)
[2021-08-25] MEDS: GABAPENTIN 800 MG TAB PO SCH (22:13)
[2021-08-25] MEDS: ENOXAPARIN INJ 40 MG/0.4 ML SYR SQ SCH (22:13)
[2021-08-25] MEDS: ASCORBIC ACID 500 MG TAB PO SCH (22:14)
[2021-08-25] MEDS: SODIUM CHLORIDE 0.9% 10ML FLUSH IV SCH (22:56)
[2021-08-25] MEDS: INSULIN ASPART 100 UNITS/ML 3 ML PEN SC SCH (22:56)
[2021-08-25] MEDS: INSULIN GLARGINE SOLOSTAR 100 UNITS/ML 3 ML PEN SC SCH (22:57)
[2021-08-26 07:21] LABS: Hematocrit (blood only) 38.8 % (37-47); Hemoglobin 12.9 g/dL (12.0-16.0); Mean Corpuscular Hemoglobin 28.9 pg (25-34); Mean Corpuscular Hgb Conc 33.2 g/dL (32-36); Mean Platelet Volume 9.8 fL (7.4-10.4); Platelet Count 166 K/uL (130-400); RDW Coefficient of Variation 13.9 % (11.5-14.5); RDW Standard Deviation 44.4 fL (36.4-46.3); Red Blood Count 4.46 M/uL (4.2-5.4); White Blood Count 7.74 K/uL (4.8-10.8)
[2021-08-26 07:56] LABS: BUN Creatinine Ratio 23.5 (10-20); C Reactive Protein 11.9 mg/dl (0-0.29); Calcium 8.8 mg/dl (8.5-10.1); Creatinine Clr Calc Pharmacy 88.1 ml/min; Est GFR (African American) 109.5 ml/min; Est GFR (Non-African American) 94.5 ml/min; Potassium 3.8 mmol/L (3.5-5.1)
[2021-08-26 08:10] LABS: Estimated Average Glucose 151 mg/dl; Hemoglobin A1C 6.9 % (4.5-5.6)
[2021-08-26] MEDS: dexAMETHasone 6 MG in SYRINGE 0 ML IV SCH (08:37)
[2021-08-26] MEDS: FLUTICASONE/VILANTEROL 200/25MCG 14 PUFFS/INHALER INH SCH (08:40)
[2021-08-26] MEDS: GABAPENTIN 800 MG TAB PO SCH ×3 (08:41→20:16)
[2021-08-26] MEDS: ASCORBIC ACID 500 MG TAB PO SCH ×2 (08:41→20:17)
[2021-08-26] MEDS: CHOLECALCIFEROL 1,000 UNITS 25 MCG TAB PO SCH (08:41)
[2021-08-26] MEDS: DULoxetine HCL 30 MG CAP PO SCH (08:41)
[2021-08-26] MEDS: ASPIRIN 81 MG ECTAB PO SCH (08:41)
[2021-08-26] MEDS: DULoxetine HCL 60 MG CAP PO SCH (08:41)
[2021-08-26] MEDS: PANTOprazole 40 MG TAB PO SCH (08:42)
[2021-08-26] MEDS: PROPRANOLOL HCL 20 MG TAB PO SCH (08:42)
[2021-08-26] MEDS: INSULIN ASPART 100 UNITS/ML 3 ML PEN SC SCH ×4 (09:15→20:18)
[2021-08-26] MEDS: INSULIN GLARGINE SOLOSTAR 100 UNITS/ML 3 ML PEN SC SCH ×2 (09:15→20:17)
--- NOTE | 2021-08-26 13:26 | Hospitalist Progress Note ---
Date of Service August 26, 2021 Assessment & Plan (1) Pneumonia due to COVID-19 virus: Plan: Patient was started on dexamethasone and remdesivir on admission Was requiring oxygen at 2 L/min on admission. Currently on room air Continue incentive spirometry and flutter Symptomatic treatment with guaifenesin, imodium Continue to trend inflammatory markers Monitor LFTs with remdesivir. (2) Asthma: Plan: No evidence of exacerbation at this point. Continue home inhalers including Advair, Combivent as needed. (3) Fibromyalgia: Plan: Continue home duloxetine with gabapentin. (4) Chronic fatigue syndrome: Plan: Supportive care as needed. (5) DMII (diabetes mellitus, type 2): Plan: Hold Ozempic and Jardiance per home regimen. Continue with basal bolus insulin with carb coverage and correction factor. (6) DVT prophylaxis: Plan: Lovenox Full code Disposition-to med telemetry Admission and Anticipated Discharge Date Admission Date: August 25, 2021 Subjective 61-year-old woman with diabetes, chronic fatigue syndrome, asthma, recently diagnosed COVID-19 infection 2 days prior to presentation who presented with worsening cough, shortness of breath, headache and diarrhea and was noted to be hypoxic in the ER. Being managed for COVID-19 pneumonia. Patient seen and examined today. Reports improvement in fatigue. Reports resolution of nausea and vomiting. Still has diarrhea Reported dizziness earlier but no longer having any dizziness or headache at this time. Denies any abdominal pain Continues to have cough and shortness of breath Review of Systems Constitutional: + fatigue; no chills Eyes: no problem reported Respiratory: + cough, + chest congestion and + dyspnea Cardiovascular: + dyspnea; no chest pain, no palpitations and no edema Gastrointestinal: + diarrhea/loose stools; no abdominal pain, no nausea and no vomiting Genitourinary: no dysuria, no urinary frequency and no urinary urgency Neurologic: + generalized weakness; no headache(s) Psychiatric: no depression and no anxiety Physical Exam Constitutional: + well hydrated; no acute distress Eyes: PERRL, conjunctivae normal, anicteric sclerae ENMT: external ear and nose normal, oropharynx normal Respiratory: Currently on room air. Not in respiratory distress Coarse breath sounds bilaterally Cardiovascular: RRR, S1-S2 Gastrointestinal (Abdomen): normal bowel sounds, soft, nontender, no hepatosplenomegaly Musculoskeletal: no cyanosis or clubbing, extremities motor strength 5/5 Neurologic: PERRL, EOMI, accommodation nl, no face palsy, no dysarthria Psychiatric: A+Ox3, euthymic affect Results & Data Results & Data ([facility]) Vital Signs (Past 12 Hours) Vital Signs Temp Pulse Pulse Resp BP Pulse Ox 08/26/21 12:07 36.4 C L 66 17 137/78 94 08/26/21 08:06 36.7 C 80 18 128/87 93 08/26/21 06:12 84 08/26/21 05:18 37.1 C 78 18 121/76 91 Laboratory Results Abnormal lab results 08/25/21 08/25/21 08/25/21 Range/Units 15:14 15:14 16:00 Neut # (Auto) 7.17 H (1.4-6.5) K/uL Lymph # (Auto) 1.18 L (1.2-3.4) K/uL Sodium 135 L (136-145) mmol/L Carbon Dioxide 18 L (21-32) mmol/L Anion Gap 15.0 H (3-11) BUN/Creatinine Ratio (10-20) Glucose 122 H (70-99) mg/dl POC Glucose (70-99) mg/dl Hemoglobin A1c (4.5-5.6) % Phosphorus 2.3 L (2.5-4.9) mg/dl C-Reactive Protein 12.40 H (0-0.29) mg/dl Total Protein 8.6 H (6.4-8.2) gm/dl Albumin 3.1 L (3.4-5.0) gm/dl Globulin 5.5 H (2.5-4.0) gm/dl Albumin/Globulin Ratio 0.6 L (0.9-2) 08/25/21 08/26/21 08/26/21 Range/Units 21:56 06:50 06:50 Neut # (Auto) (1.4-6.5) K/uL Lymph # (Auto) (1.2-3.4) K/uL Sodium (136-145) mmol/L Carbon Dioxide (21-32) mmol/L Anion Gap (3-11) BUN/Creatinine Ratio 23.5 H (10-20) Glucose 120 H (70-99) mg/dl POC Glucose 133 H (70-99) mg/dl Hemoglobin A1c 6.9 H (4.5-5.6) % Phosphorus (2.5-4.9) mg/dl C-Reactive Protein 11.90 H (0-0.29) mg/dl Total Protein (6.4-8.2) gm/dl Albumin (3.4-5.0) gm/dl Globulin (2.5-4.0) gm/dl Albumin/Globulin Ratio (0.9-2) 08/26/21 08/26/21 Range/Units 08:09 12:05 Neut # (Auto) (1.4-6.5) K/uL Lymph # (Auto) (1.2-3.4) K/uL Sodium (136-145) mmol/L Carbon Dioxide (21-32) mmol/L Anion Gap (3-11) BUN/Creatinine Ratio (10-20) Glucose (70-99) mg/dl POC Glucose 116 H 141 H (70-99) mg/dl Hemoglobin A1c (4.5-5.6) % Phosphorus (2.5-4.9) mg/dl C-Reactive Protein (0-0.29) mg/dl Total Protein (6.4-8.2) gm/dl Albumin (3.4-5.0) gm/dl Globulin (2.5-4.0) gm/dl Albumin/Globulin Ratio (0.9-2)
[2021-08-26] MEDS: REMDESIVIR 100 MG in SODIUM CHLORIDE 0.9% 230 ML IV SCH (20:08)
[2021-08-26] MEDS: SODIUM CHLORIDE 0.9% 10ML FLUSH IV SCH (20:14)
[2021-08-26] MEDS: ENOXAPARIN INJ 40 MG/0.4 ML SYR SQ SCH (20:15)
--- NOTE | 2021-08-27 05:38 | Electrocardiogram Report ---
Test Reason : Blood Pressure : / mmHG Vent. Rate : 101 BPM Atrial Rate : 101 BPM P-R Int : 172 ms QRS Dur : 092 ms QT Int : 308 ms P-R-T Axes : 030 003 008 degrees QTc Int : 399 ms Sinus tachycardia Nonspecific ST and T wave abnormality Abnormal ECG When compared with ECG of 23-AUG-2021 23:48, No significant change was found Confirmed by Gurwinder Ray ([id number] on 08/27/2021 5:38:04 AM Referred By: REFERRED SELF Confirmed By:Gurwinder Ray
[2021-08-27 06:53] LABS: Hematocrit (blood only) 38.2 % (37-47); Hemoglobin 12.9 g/dL (12.0-16.0); Mean Corpuscular Hemoglobin 28.7 pg (25-34); Mean Corpuscular Hgb Conc 33.8 g/dL (32-36); Mean Corpuscular Volume 85.1 fL (80-100); Mean Platelet Volume 10.8 fL (7.4-10.4); Platelet Count 194 K/uL (130-400); RDW Coefficient of Variation 13.8 % (11.5-14.5); RDW Standard Deviation 43.5 fL (36.4-46.3); Red Blood Count 4.49 M/uL (4.2-5.4); White Blood Count 12.23 K/uL (4.8-10.8)
[2021-08-27 06:57] LABS: Albumin Level 2.6 gm/dl (3.4-5.0); BUN Creatinine Ratio 33.3 (10-20); Calcium 8.6 mg/dl (8.5-10.1); Creatinine Clr Calc Pharmacy 95.2 ml/min; Est GFR (African American) 111.8 ml/min; Est GFR (Non-African American) 96.5 ml/min; Potassium 3.3 mmol/L (3.5-5.1)
[2021-08-27 07:03] LABS: Albumin Globulin Ratio 0.6 (0.9-2); Bilirubin,Total 0.3 mg/dl (0.2-1); C Reactive Protein 5.85 mg/dl (0-0.29); Globulin 4.5 gm/dl (2.5-4.0); Total Protein 7.1 gm/dl (6.4-8.2)
[2021-08-27] MEDS: INSULIN ASPART 100 UNITS/ML 3 ML PEN SC SCH ×4 (08:13→20:48)
[2021-08-27] MEDS: DULoxetine HCL 30 MG CAP PO SCH (08:14)
[2021-08-27] MEDS: FLUTICASONE/VILANTEROL 200/25MCG 14 PUFFS/INHALER INH SCH (08:14)
[2021-08-27] MEDS: GABAPENTIN 800 MG TAB PO SCH ×3 (08:14→20:45)
[2021-08-27] MEDS: INSULIN GLARGINE SOLOSTAR 100 UNITS/ML 3 ML PEN SC SCH ×2 (08:14→20:45)
[2021-08-27] MEDS: CHOLECALCIFEROL 1,000 UNITS 25 MCG TAB PO SCH (08:14)
[2021-08-27] MEDS: PROPRANOLOL HCL 20 MG TAB PO SCH (08:14)
[2021-08-27] MEDS: ASCORBIC ACID 500 MG TAB PO SCH ×2 (08:14→20:44)
[2021-08-27] MEDS: PANTOprazole 40 MG TAB PO SCH (08:14)
[2021-08-27] MEDS: ASPIRIN 81 MG ECTAB PO SCH (08:14)
[2021-08-27] MEDS: DULoxetine HCL 60 MG CAP PO SCH (08:14)
[2021-08-27] MEDS: dexAMETHasone 6 MG in SYRINGE 0 ML IV SCH (08:14)
[2021-08-27] MEDS ORDERED: POTASSIUM CHLORIDE CRTAB 20 MEQ TABCR PO STA (08:23)
--- NOTE | 2021-08-27 09:56 | Hospitalist Progress Note ---
Date of Service August 27, 2021 Assessment & Plan (1) Pneumonia due to COVID-19 virus: Plan: Patient was started on dexamethasone and remdesivir on admission Was requiring oxygen at 2 L/min on admission. Has been weaned to room air Continue incentive spirometry and flutter Symptomatic treatment with guaifenesin, imodium Continue to trend inflammatory markers Monitor LFTs with remdesivir. (2) Asthma: Plan: No evidence of exacerbation at this point. Continue home inhalers including Advair, Combivent as needed. (3) Fibromyalgia: Plan: Continue home duloxetine with gabapentin. (4) Chronic fatigue syndrome: Plan: Supportive care as needed. (5) DMII (diabetes mellitus, type 2): Plan: Hold Ozempic and Jardiance per home regimen. Continue with basal bolus insulin with carb coverage and correction factor. (6) DVT prophylaxis: Plan: Lovenox Full code Disposition-D/c tele. Plan: Possible dc in 24-48hrs Will need 2 step prior to dc Admission and Anticipated Discharge Date Admission Date: August 25, 2021 Subjective 61-year-old woman with diabetes, chronic fatigue syndrome, asthma, recently diagnosed COVID-19 infection 2 days prior to presentation who presented with worsening cough, shortness of breath, headache and diarrhea and was noted to be hypoxic in the ER. Being managed for COVID-19 pneumonia. Patient seen and examined today. Reports improvement in fatigue. Still reports loose bowel movement No headache or dizziness Denies any abdominal pain Continues to have cough and shortness of breath Review of Systems Constitutional: + fatigue; no chills Eyes: no problem reported Respiratory: + cough, + chest congestion and + dyspnea Cardiovascular: + dyspnea; no chest pain, no palpitations and no edema Gastrointestinal: + diarrhea/loose stools; no abdominal pain, no nausea and no vomiting Genitourinary: no dysuria, no urinary frequency and no urinary urgency Neurologic: + generalized weakness; no headache(s) Psychiatric: no depression and no anxiety Physical Exam Constitutional: + well hydrated; no acute distress Eyes: PERRL, conjunctivae normal, anicteric sclerae ENMT: external ear and nose normal, oropharynx normal Respiratory: Not in respiratory distress Coarse breath sounds Currently on room air Cardiovascular: RRR. S1 S2 Gastrointestinal (Abdomen): normal bowel sounds, soft, nontender, no hepatosplenomegaly Musculoskeletal: no cyanosis or clubbing, extremities motor strength 5/5 Neurologic: PERRL, EOMI, accommodation nl, no face palsy, no dysarthria Psychiatric: A+Ox3, euthymic affect Results & Data Results & Data ([facility]) Vital Signs (Past 12 Hours) Vital Signs Temp Pulse Pulse Resp BP Pulse Ox 08/27/21 04:16 36.8 C 70 20 132/78 90 08/27/21 00:00 71 08/26/21 23:37 37.0 C 65 20 131/76 92 Laboratory Results Abnormal lab results 08/26/21 08/26/21 08/27/21 Range/Units 16:49 20:05 05:43 WBC (4.8-10.8) K/uL MPV (7.4-10.4) fL Sodium 135 L (136-145) mmol/L Potassium 3.3 L (3.5-5.1) mmol/L BUN 20 H (7-18) mg/dl BUN/Creatinine Ratio 33.3 H (10-20) Glucose 128 H (70-99) mg/dl POC Glucose 142 H 176 H (70-99) mg/dl C-Reactive Protein 5.85 H (0-0.29) mg/dl Albumin 2.6 L (3.4-5.0) gm/dl Globulin 4.5 H (2.5-4.0) gm/dl Albumin/Globulin Ratio 0.6 L (0.9-2) 08/27/21 08/27/21 08/27/21 Range/Units 05:43 07:59 11:47 WBC 12.23 H (4.8-10.8) K/uL MPV 10.8 H (7.4-10.4) fL Sodium (136-145) mmol/L Potassium (3.5-5.1) mmol/L BUN (7-18) mg/dl BUN/Creatinine Ratio (10-20) Glucose (70-99) mg/dl POC Glucose 117 H 188 H (70-99) mg/dl C-Reactive Protein (0-0.29) mg/dl Albumin (3.4-5.0) gm/dl Globulin (2.5-4.0) gm/dl Albumin/Globulin Ratio (0.9-2)
[2021-08-27] MEDS ORDERED: SODIUM CHLORIDE 0.65% NA SOLN 45 ML (OCEAN) ONE (12:02)
[2021-08-27] MEDS: REMDESIVIR 100 MG in SODIUM CHLORIDE 0.9% 230 ML IV SCH (20:38)
[2021-08-27] MEDS: ENOXAPARIN INJ 40 MG/0.4 ML SYR SQ SCH (20:44)
[2021-08-27] MEDS: SODIUM CHLORIDE 0.9% 10ML FLUSH IV SCH (21:56)
[2021-08-28] MEDS: INSULIN ASPART 100 UNITS/ML 3 ML PEN SC SCH ×4 (09:16→20:57)
[2021-08-28] MEDS: FLUTICASONE/VILANTEROL 200/25MCG 14 PUFFS/INHALER INH SCH (09:17)
[2021-08-28] MEDS: CHOLECALCIFEROL 1,000 UNITS 25 MCG TAB PO SCH (09:18)
[2021-08-28] MEDS: ASCORBIC ACID 500 MG TAB PO SCH ×2 (09:18→20:58)
[2021-08-28] MEDS: GABAPENTIN 800 MG TAB PO SCH ×3 (09:18→20:58)
[2021-08-28] MEDS: dexAMETHasone 6 MG in SYRINGE 0 ML IV SCH (09:18)
[2021-08-28] MEDS: INSULIN GLARGINE SOLOSTAR 100 UNITS/ML 3 ML PEN SC SCH ×2 (09:19→20:57)
[2021-08-28] MEDS: DULoxetine HCL 60 MG CAP PO SCH (09:19)
[2021-08-28] MEDS: PANTOprazole 40 MG TAB PO SCH (09:19)
[2021-08-28] MEDS: ASPIRIN 81 MG ECTAB PO SCH (09:19)
[2021-08-28] MEDS: DULoxetine HCL 30 MG CAP PO SCH (09:19)
[2021-08-28] MEDS: PROPRANOLOL HCL 20 MG TAB PO SCH (09:19)
[2021-08-28 10:59] LABS: Hematocrit (blood only) 38.6 % (37-47); Hemoglobin 13.2 g/dL (12.0-16.0); Mean Corpuscular Hemoglobin 28.9 pg (25-34); Mean Corpuscular Hgb Conc 34.2 g/dL (32-36); Mean Corpuscular Volume 84.6 fL (80-100); Mean Platelet Volume 9.6 fL (7.4-10.4); Platelet Count 193 K/uL (130-400); RDW Coefficient of Variation 13.9 % (11.5-14.5); RDW Standard Deviation 43.2 fL (36.4-46.3); Red Blood Count 4.56 M/uL (4.2-5.4)
[2021-08-28 11:25] LABS: Albumin Level 2.5 gm/dl (3.4-5.0); BUN Creatinine Ratio 28.1 (10-20); C Reactive Protein 2.77 mg/dl (0-0.29); Calcium 8.6 mg/dl (8.5-10.1); Creatinine Clr Calc Pharmacy 81.8 ml/min; Est GFR (African American) 105.1 ml/min; Est GFR (Non-African American) 90.7 ml/min; Potassium 3.2 mmol/L (3.5-5.1)
[2021-08-28 11:26] LABS: D Dimer 1020 ug/L FEU (0-500)
[2021-08-28 11:27] LABS: Albumin Globulin Ratio 0.5 (0.9-2); Bilirubin,Total 0.4 mg/dl (0.2-1); Globulin 4.6 gm/dl (2.5-4.0); Total Protein 7.1 gm/dl (6.4-8.2)
--- NOTE | 2021-08-28 11:37 | Hospitalist Progress Note ---
Date of Service August 28, 2021 Assessment & Plan (1) Pneumonia due to COVID-19 virus: Plan: Continue dexamethasone and remdesivir Was requiring oxygen at 2 L/min on admission. Has been weaned to room air Patient became hypoxic with 2 steps today requiring up to 3l/min Had just returned from 2 step at the time of my evaluation. Was on 2l/min placed Will continue incentive spirometry and flutter for now Encourage activity Will plan to do another 2 step in Symptomatic treatment with guaifenesin, imodium (2) Asthma: Plan: No evidence of exacerbation at this point. Continue home inhalers including Advair, Combivent as needed. (3) Fibromyalgia: Plan: Continue home duloxetine with gabapentin. (4) Chronic fatigue syndrome: Plan: Supportive care as needed. (5) DMII (diabetes mellitus, type 2): Plan: Hold Ozempic and Jardiance per home regimen. Continue with basal bolus insulin with carb coverage and correction factor. (6) DVT prophylaxis: Plan: Lovenox Full code Admission and Anticipated Discharge Date Admission Date: August 25, 2021 Subjective 61-year-old woman with diabetes, chronic fatigue syndrome, asthma, recently diagnosed COVID-19 infection 2 days prior to presentation who presented with worsening cough, shortness of breath, headache and diarrhea and was noted to be hypoxic in the ER. Being managed for COVID-19 pneumonia. Patient seen and examined today. Reports persistent cough and shortness of breath Diarrhea is resolved for now Still reports loose bowel movement Review of Systems Review of Systems: At least ten systems were reviewed and negative except as indicated in HPI above. Constitutional: + fatigue; no chills Eyes: no problem reported Respiratory: + cough, + chest congestion and + dyspnea Cardiovascular: + dyspnea; no chest pain, no palpitations and no edema Gastrointestinal: no abdominal pain, no nausea, no vomiting and no diarrhea/loose stools Genitourinary: no dysuria, no urinary frequency and no urinary urgency Neurologic: + generalized weakness; no headache(s) Psychiatric: no depression and no anxiety Physical Exam Constitutional: + well hydrated; no acute distress Eyes: PERRL, conjunctivae normal, anicteric sclerae ENMT: external ear and nose normal, oropharynx normal Respiratory: Diminished breath sounds. No crackles or wheeze Cardiovascular: RRR. S1 S2 Gastrointestinal (Abdomen): normal bowel sounds, soft, nontender, no hepatosplenomegaly Musculoskeletal: no cyanosis or clubbing, extremities motor strength 5/5 Neurologic: PERRL, EOMI, accommodation nl, no face palsy, no dysarthria Psychiatric: A+Ox3, euthymic affect Results & Data Results & Data ([facility]) Vital Signs (Past 12 Hours) Vital Signs Temp Pulse Pulse Pulse Pulse Pulse Pulse 08/28/21 09:36 90 80 88 88 90 80 08/28/21 07:36 36.6 C 08/28/21 07:30 Pulse Resp Resp Resp Resp Resp Resp 08/28/21 09:36 20 20 20 20 20 08/28/21 07:36 62 16 08/28/21 07:30 Resp BP Pulse Ox Pulse Ox Pulse Ox Pulse Ox Pulse Ox 08/28/21 09:36 20 90 87 L 90 87 L 08/28/21 07:36 155/85 H 92 08/28/21 07:30 88 L Pulse Ox Pulse Ox 08/28/21 09:36 95 88 L 08/28/21 07:36 08/28/21 07:30 Laboratory Results Abnormal lab results 08/27/21 08/28/21 08/28/21 Range/Units 20:30 07:41 10:20 D-Dimer (0-500) ug/L FEU Potassium 3.2 L (3.5-5.1) mmol/L BUN 20 H (7-18) mg/dl BUN/Creatinine Ratio 28.1 H (10-20) Glucose 125 H (70-99) mg/dl POC Glucose 156 H 101 H (70-99) mg/dl C-Reactive Protein 2.77 H (0-0.29) mg/dl Albumin 2.5 L (3.4-5.0) gm/dl Globulin 4.6 H (2.5-4.0) gm/dl Albumin/Globulin Ratio 0.5 L (0.9-2) 08/28/21 08/28/21 08/28/21 Range/Units 10:20 11:37 16:31 D-Dimer 1020 H* (0-500) ug/L FEU Potassium (3.5-5.1) mmol/L BUN (7-18) mg/dl BUN/Creatinine Ratio (10-20) Glucose (70-99) mg/dl POC Glucose 119 H 199 H (70-99) mg/dl C-Reactive Protein (0-0.29) mg/dl Albumin (3.4-5.0) gm/dl Globulin (2.5-4.0) gm/dl Albumin/Globulin Ratio (0.9-2)
[2021-08-28] MEDS: REMDESIVIR 100 MG in SODIUM CHLORIDE 0.9% 230 ML IV SCH (19:46)
[2021-08-28] MEDS: SODIUM CHLORIDE 0.9% 10ML FLUSH IV SCH (20:50)
[2021-08-28] MEDS: ENOXAPARIN INJ 40 MG/0.4 ML SYR SQ SCH (20:59)
[2021-08-29] MEDS: INSULIN ASPART 100 UNITS/ML 3 ML PEN SC SCH ×4 (08:16→20:44)
[2021-08-29] MEDS: FLUTICASONE/VILANTEROL 200/25MCG 14 PUFFS/INHALER INH SCH (09:22)
[2021-08-29] MEDS: ASPIRIN 81 MG ECTAB PO SCH (09:23)
[2021-08-29] MEDS: dexAMETHasone 6 MG in SYRINGE 0 ML IV SCH (09:23)
[2021-08-29] MEDS: DULoxetine HCL 30 MG CAP PO SCH (09:23)
[2021-08-29] MEDS: INSULIN GLARGINE SOLOSTAR 100 UNITS/ML 3 ML PEN SC SCH ×2 (09:23→20:43)
[2021-08-29] MEDS: CHOLECALCIFEROL 1,000 UNITS 25 MCG TAB PO SCH (09:23)
[2021-08-29] MEDS: PANTOprazole 40 MG TAB PO SCH (09:23)
[2021-08-29] MEDS: DULoxetine HCL 60 MG CAP PO SCH (09:23)
[2021-08-29] MEDS: PROPRANOLOL HCL 20 MG TAB PO SCH (09:23)
[2021-08-29] MEDS: ASCORBIC ACID 500 MG TAB PO SCH ×2 (09:24→20:41)
[2021-08-29] MEDS: GABAPENTIN 800 MG TAB PO SCH ×3 (09:24→20:41)
[2021-08-29 11:12] LABS: Hematocrit (blood only) 39.5 % (37-47); Hemoglobin 13.4 g/dL (12.0-16.0); Mean Corpuscular Hemoglobin 29.1 pg (25-34); Mean Corpuscular Hgb Conc 33.9 g/dL (32-36); Mean Corpuscular Volume 85.9 fL (80-100); Mean Platelet Volume 9.8 fL (7.4-10.4); Platelet Count 183 K/uL (130-400); RDW Coefficient of Variation 13.6 % (11.5-14.5); RDW Standard Deviation 42.6 fL (36.4-46.3); White Blood Count 8.92 K/uL (4.8-10.8)
[2021-08-29 11:37] LABS: BUN Creatinine Ratio 23.2 (10-20); Calcium 8.5 mg/dl (8.5-10.1); Est GFR (African American) 106.9 ml/min; Est GFR (Non-African American) 92.2 ml/min; Potassium 3.4 mmol/L (3.5-5.1)
--- NOTE | 2021-08-29 11:47 | Hospitalist Progress Note ---
Date of Service August 29, 2021 Assessment & Plan (1) Pneumonia due to COVID-19 virus: Plan: Continue dexamethasone and remdesivir Was requiring oxygen at 2 L/min on admission. Has been weaned to room air Will continue incentive spirometry and flutter for now Encourage activity Symptomatic treatment with guaifenesin, imodium Plan for possible dc tomorrow. Get 2 step in AM (2) Asthma: Plan: No evidence of exacerbation at this point. Continue home inhalers including Advair, Combivent as needed. (3) Fibromyalgia: Plan: Continue home duloxetine with gabapentin. (4) Chronic fatigue syndrome: Plan: Supportive care as needed. (5) DMII (diabetes mellitus, type 2): Plan: Hold Ozempic and Jardiance per home regimen. Continue with basal bolus insulin with carb coverage and correction factor. (6) DVT prophylaxis: Plan: Lovenox Full code Admission and Anticipated Discharge Date Admission Date: August 25, 2021 Subjective 61-year-old woman with diabetes, chronic fatigue syndrome, asthma, recently diagnosed COVID-19 infection 2 days prior to presentation who presented with worsening cough, shortness of breath, headache and diarrhea and was noted to be hypoxic in the ER. Being managed for COVID-19 pneumonia. Patient seen and examined today. Reports persistent cough and shortness of breath with activity Reports some chest discomfort with cough Diarrhea is resolved for now Review of Systems Constitutional: + fatigue; no chills Eyes: no problem reported Respiratory: + cough, + chest congestion and + dyspnea Cardiovascular: + dyspnea; no chest pain, no palpitations and no edema Gastrointestinal: no abdominal pain, no nausea, no vomiting and no diarrhea/loose stools Genitourinary: no dysuria, no urinary frequency and no urinary urgency Neurologic: + generalized weakness; no headache(s) Psychiatric: no depression and no anxiety Physical Exam Constitutional: + well hydrated; no acute distress Eyes: PERRL, conjunctivae normal, anicteric sclerae ENMT: external ear and nose normal, oropharynx normal Respiratory: Diminished breath sounds On room air No crackles or wheeze Cardiovascular: Rate/Rhythm: regular rate and regular rhythm S1 S2 Gastrointestinal (Abdomen): normal bowel sounds, soft, nontender, no hepatosplenomegaly Musculoskeletal: no cyanosis or clubbing, extremities motor strength 5/5 Neurologic: PERRL, EOMI, accommodation nl, no face palsy, no dysarthria Psychiatric: A+Ox3, euthymic affect Results & Data Results & Data ([facility]) Vital Signs (Past 12 Hours) Vital Signs Temp Pulse Resp BP Pulse Ox 08/29/21 08:24 36.9 C 63 16 155/84 H 92 Laboratory Results Abnormal lab results 08/28/21 08/28/21 08/29/21 Range/Units 16:31 20:55 10:40 Sodium 133 L (136-145) mmol/L Potassium 3.4 L (3.5-5.1) mmol/L BUN/Creatinine Ratio 23.2 H (10-20) Glucose 166 H (70-99) mg/dl POC Glucose 199 H 145 H (70-99) mg/dl AST 38 H (15-37) U/L 08/29/21 Range/Units 12:01 Sodium (136-145) mmol/L Potassium (3.5-5.1) mmol/L BUN/Creatinine Ratio (10-20) Glucose (70-99) mg/dl POC Glucose 184 H (70-99) mg/dl AST (15-37) U/L
[2021-08-29] MEDS ORDERED: POTASSIUM CHLORIDE CRTAB 20 MEQ TABCR PO STA (14:27)
[2021-08-29] MEDS: REMDESIVIR 100 MG in SODIUM CHLORIDE 0.9% 230 ML IV SCH (19:44)
[2021-08-29] MEDS: ENOXAPARIN INJ 40 MG/0.4 ML SYR SQ SCH (20:42)
[2021-08-29] MEDS: SODIUM CHLORIDE 0.9% 10ML FLUSH IV SCH (20:45)
[2021-08-30 06:50] LABS: Hematocrit (blood only) 41.8 % (37-47); Hemoglobin 14.2 g/dL (12.0-16.0); Mean Corpuscular Volume 85.5 fL (80-100); Mean Platelet Volume 9.9 fL (7.4-10.4); Platelet Count 197 K/uL (130-400); RDW Coefficient of Variation 13.5 % (11.5-14.5); Red Blood Count 4.89 M/uL (4.2-5.4); White Blood Count 8.06 K/uL (4.8-10.8)
[2021-08-30 07:05] LABS: BUN Creatinine Ratio 34.5 (10-20); Calcium 8.8 mg/dl (8.5-10.1); Creatinine Clr Calc Pharmacy 111.7 ml/min; Est GFR (African American) 117.9 ml/min; Est GFR (Non-African American) 101.7 ml/min; Potassium 3.1 mmol/L (3.5-5.1)
[2021-08-30] MEDS: ASCORBIC ACID 500 MG TAB PO SCH (07:48)
[2021-08-30] MEDS: PROPRANOLOL HCL 20 MG TAB PO SCH (07:49)
[2021-08-30] MEDS: DULoxetine HCL 60 MG CAP PO SCH (07:49)
[2021-08-30] MEDS: CHOLECALCIFEROL 1,000 UNITS 25 MCG TAB PO SCH (07:49)
[2021-08-30] MEDS: GABAPENTIN 800 MG TAB PO SCH ×2 (07:49→13:02)
[2021-08-30] MEDS: dexAMETHasone 6 MG in SYRINGE 0 ML IV SCH (07:49)
[2021-08-30] MEDS: ASPIRIN 81 MG ECTAB PO SCH (07:50)
[2021-08-30] MEDS: DULoxetine HCL 30 MG CAP PO SCH (07:50)
[2021-08-30] MEDS: PANTOprazole 40 MG TAB PO SCH (07:50)
[2021-08-30] MEDS: FLUTICASONE/VILANTEROL 200/25MCG 14 PUFFS/INHALER INH SCH (07:50)
[2021-08-30] MEDS ORDERED: POTASSIUM CHLORIDE CRTAB 20 MEQ TABCR PO STA (08:33)
[2021-08-30] MEDS: INSULIN ASPART 100 UNITS/ML 3 ML PEN SC SCH ×2 (09:32→13:01)
[2021-08-30] MEDS: INSULIN GLARGINE SOLOSTAR 100 UNITS/ML 3 ML PEN SC SCH (09:33)
--- NOTE | 2021-08-30 12:04 | Hospitalist Progress Note ---
Date of Service August 30, 2021 Assessment & Plan Admission and Anticipated Discharge Date Admission Date: August 25, 2021 Results & Data Results & Data ([facility]) Vital Signs (Past 12 Hours) Vital Signs Temp Pulse Pulse Pulse Pulse Resp Resp 08/30/21 08:08 92 H 88 88 19 08/30/21 07:20 36.7 C 61 16 Resp Resp BP Pulse Ox Pulse Ox Pulse Ox Pulse Ox 08/30/21 08:08 18 18 94 92 94 08/30/21 07:20 147/75 H 94
--- NOTE | 2021-08-30 16:24 | Discharge Summary ---
Date of Service August 30, 2021 Admission HPI Per Admitting Provider Patient is a 61-year-old female with diabetes, chronic fatigue syndrome, asthma who was diagnosed with COVID-19 2 days ago. Symptoms have been ongoing for the past 6 days. She specifically reports fevers, chills, cough, generalized malaise, diarrhea, headache, occasional vomiting today. She was sent home from the ER as she was not hypoxic, however, tonight she is exhibiting worsened Covid symptoms generally and is 91% on room air. Medication history includes a recent increase in Ozempic from 0.25 to 0.5 mg q. weekly, however, she has not started this new dose yet. She was also given a Z-Steve and Decadron to take at home, but did not take this. She reports poor oral intake and dry mouth. She reports feeling as if she were going to fall at home with worsening weakness. Admission Exam Per Admitting Provider CONSTITUTIONAL: WNWD, vitals as above, generally NAD EYES: PERRL, normal conjunctivae, no scleral icterus ENT: external ear and nose normal, oropharynx clear, tongue with whitish appearance to it. NECK: trachea midline RESPIRATORY: Coarse crackles throughout all lung forrest, no rales or wheezes, normal respiratory effort CARDIOVASCULAR: regular rate and rhythm, S1 and 2 heard without murmurs, gallops or rubs, no JVD, no peripheral edema CHEST: inspection of chest was normal GASTROINTESTINAL: soft, nontender, ND, no guarding MUSCULOSKELETAL: strength 5/5 throughout, head is normocephalic and atraumatic SKIN: warm and dry NEUROLOGIC: No facial palsy, no dysarthria. CN 2-12 grossly intact, no sensory deficit, normal cognition, normal speech, no tremor. No gross focal deficit. PSYCHIATRIC: alert cooperative and oriented to person, place and time. Euthymic mood, makes good eye contact, language grossly intact, recent and remote memory grossly intact. Principal Diagnosis COVID 19 pneumonia Acute hypoxic respiratory failure Discharge Exam Constitutional + well hydrated; no acute distress Eyes PERRL, conjunctivae normal, anicteric sclerae ENMT external ear and nose normal, oropharynx normal Respiratory normal respiratory effort, lungs clear to auscultation Cardiovascular Rate/Rhythm: regular rate and regular rhythm Gastrointestinal (Abdomen) normal bowel sounds, soft, nontender, no hepatosplenomegaly Musculoskeletal no cyanosis or clubbing, extremities motor strength 5/5 Neurologic PERRL, EOMI, accommodation nl, no face palsy, no dysarthria Psychiatric A+Ox3, euthymic affect Discharge Data Allergies Allergy/AdvReac Type Severity Reaction Status Date / Time Penicillins Allergy Unknown CAN'T Verified 08/25/21 16:37 REMEMBER oxycodone AdvReac Intermediate Gastrointestinal Verified 08/25/21 16:37 Upset Sulfa (Sulfonamide AdvReac Intermediate Gastrointestinal Verified 08/25/21 16:37 Antibiotics) Upset sulfamethoxazole AdvReac Intermediate Gastrointestinal Verified 08/25/21 16:37 Upset Consultations 08/25/21 18:49 ED Decision to Admit Stat Hospital Course (1) Pneumonia due to COVID-19 virus: Chest x-ray showed bibasilar airspace opacities. Was requiring oxygen at 2 L/min on admission. Was treated with dexamethasone and remdesivir. Was weaned off oxygen to room air. Ambulatory oxygen assessment/2 step did not show need for oxygen with activity Provided patient with home isolation instructions. Discharge home to continue home medications follow-up with PCP (2) Asthma: Continue home inhalers including Advair, Combivent as needed. (3) Fibromyalgia: Continue home duloxetine with gabapentin. (4) Chronic fatigue syndrome: Supportive care as needed. (5) DMII (diabetes mellitus, type 2): Hold Ozempic and Jardiance per home regimen. Continue with basal bolus insulin with carb coverage and correction factor. Total Time Total Time Spent Total Time Spent (In Minutes): 40 Total Time Includes: Examination of the Patient, Discharge Planning and Medication Reconciliation Discharge Plan Discharge Items Patient Disposition: Home - Self-Care Reason For Visit: Shortness of breath Discharge Diagnosis: COVID 19 pneumonia Acute hypoxic respiratory failure Activity: Resume your previous activity Non-emergency contact: Primary Care Provider Call non-emergency contact if: you have any medication questions and your symptoms worsen Follow-up/Referrals: Lisa Umana MD [Primary Care Provider] - (Date & Time 09/02/2021 3:00 PM Provider Doris Richards PA-C Department Family Medicine [facility] PLEASE NOTE THAT THIS IS A TELEPHONE APPOINTMENT. THE PHYSICIAN WILL CALL YOU AT THE APPOINTMENT TIME. IF YOU HAVE ANY QUESTIONS REGARDING THIS APPOINTMENT, PLEASE CALL ) Diet: Carb Consistent or DM2 Addtl Attending Provider Instructions: Mrs Carter You came to the hospital complaining of cough and shortness of breath. You were evaluated and treated for COVID 19 pneumonia. You required oxygen briefly but was subsequently weaned off. Your symptoms improved and you are being discharged home. Please ensure follow up with your Primary Doctor. It was a pleasure taking care of you. 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 You should restrict activities outside your home, except for getting medical care. Do not go to work, school, or public areas. Avoid using public transportation, ride-sharing, or taxis. Separate yourself from other people and animals in your home People: As much as possible, you should stay in a specific room and away from other people in your home. Also, you should use a separate bathroom, if available. Animals: You should restrict contact with pets and other animals while you are sick with COVID-19, just like you would around other people. Although there have not been reports of pets or other animals becoming sick with COVID-19, it is still recommended that people sick with COVID-19 limit contact with animals until more information is known about the virus. When possible, have another me mber of your household care for your animals while you are sick. If you are sick with COVID-19, avoid contact with your pet, including petting, snuggling, being kissed or licked, and sharing food. If you must care for your pet or be around animals while you are sick, wash your hands before and after you interact with pets and wear a face mask. Call ahead before visiting your doctor If you have a medical appointment, call the healthcare provider and tell them that you have or may have COVID-19. This will help the healthcare providers office take steps to keep other people from getting infected or exposed. Wear a face mask You should wear a face mask when you are around other people (e.g., sharing a room or vehicle) or pets and before you enter a healthcare providers office. If you are not able to wear a face mask (for example, because it causes trouble breathing), then people who live with you should not stay in the same room with you, or they should wear a face mask if they enter your room. Cover your coughs and sneezes Cover your mouth and nose with a tissue when you cough or sneeze. Throw used tissues in a lined trash can. Immediately wash your hands with soap and water for at least 20 seconds or, if soap and water are not available, clean your hands with an alcohol-based hand finance clerk that contains at least 60% alcohol. Clean your hands often Wash your hands often with soap and water for at least 20 seconds, especially after blowing your nose, coughing, or sneezing; going to the bathroom; and before eating or preparing food. If soap and water are not readily available, use an alcohol-based hand finance clerk with at least 60% alcohol, covering all surfaces of your hands and rubbing them together until they feel dry. Soap and water are the best option if hands are visibly dirty. Avoid touching your eyes, nose, and mouth with unwashed hands. Avoid sharing personal household items You should not share dishes, drinking glasses, cups, eating utensils, towels, or bedding with other people or pets in your home. After using these items, they should be washed thoroughly with soap and water. Clean all high-touch surfaces everyday High touch surfaces include counters, tabletops, doorknobs, bathroom fixtures, toilets, phones, keyboards, tablets, and bedside tables. Also, clean any surfaces that may have blood, stool, or body fluids on them. Use a household cleaning spray or wipe, according to the label instructions. Labels contain instructions for safe and effective use of the cleaning product including precautions you should take when applying the product, such as wearing gloves and making sure you have good ventilation during use of the product. Monitor your symptoms Seek prompt medical attention if your illness is worsening (e.g., difficulty breathing).Beforeseeking care, call your healthcare provider and tell them that you have, or are being evaluated for, COVID-19. Put on a face mask before you enter the facility. These steps will help the healthcare providers office to keep other people in the office or waiting room from getting infected or exposed. Ask your healthcare provider to call the local or state health department. Persons who are placed under active monitoring or facilitated self- monitoring should follow instructions provided by their local health department or occupational health professionals, as appropriate. When working with your local health department check their available hours. If you have a medical emergency and need to call 911, notify the dispatch personnel that you have, or are being evaluated for COVID-19. If possible, put on a face mask before emergency medical services arrive. Discontinuing home isolation Patients with confirmed COVID-19 should remain under home isolation precautions until the risk of secondary transmission to others is thought to be low. The decision to discontinue home isolation precautions should be made on a [id number] basis, in consultation with healthcare providers and [facility] and [facility] health departments. Pending Studies at Discharge: No Stand-Alone Forms: [facility] YesVideo, Smoking Cessation Medications and DC Order Prescriptions: Continued Jardiance 25 mg tablet 25 mg PO DAILY RF: 0 aspirin 81 mg Tablet,Delayed Release (Dr/Ec) 81 mg PO DAILY RF: 0 pantoprazole 20 mg tablet,delayed release (DR/EC) 20 mg PO DAILY RF: 0 propranolol 40 mg tablet 40 mg PO DAILY RF: 0 ascorbic acid (vitamin C) [Vitamin C] 500 mg Tablet 500 mg PO DAILY RF: 0 gabapentin 800 mg tablet 800 mg PO TID RF: 0 trazodone 150 mg tablet 150 mg PO HS RF: 0 fluticasone propion-salmeterol 500-50 mcg/dose blister with device 1 inh INHALATION BID RF: 0 ibuprofen 200 mg Tablet 400 - 600 mg PO DIRECTED PRN (Reason: FEVER/PAIN) RF: 0 fluticasone propionate 50 mcg/actuation [place],Suspension 1 spray INTRANASAL BID PRN (Reason: Congestion) RF: 0 sulindac 200 mg tablet 200 mg PO BID PRN (Reason: NEEDED) RF: 0 duloxetine 30 mg capsule,delayed release(DR/EC) 30 mg PO DAILY RF: 0 duloxetine 60 mg capsule,delayed release(DR/EC) 60 mg PO DAILY RF: 0 cholecalciferol (vitamin D3) [Vitamin D3] 50 mcg (2,000 unit) Capsule 3,000 mcg PO DAILY RF: 0 Combivent Respimat 20-100 mcg/actuation mist 1 puff INHALATION DAILY RF: 0 Ozempic 0.25 mg or 0.5 mg(2 mg/1.5 mL) pen injector 0.25 mg SUBCUT WK RF: 0 albuterol sulfate 90 mcg/actuation HFA aerosol inhaler 2 inh inhalation Q4H PRN (Reason: shortness of breath or wheezing) Qty: 8.5 RF: 0 Discharge Orders: Discharge Order (Routine); Ordered 08/30/21 Ordered By: Mary Shaikh/Other Patient Handouts: A1C, Managing Type 2 Diabetes Admission Data Admit Date/Time: 08/25/21 19:26 Attending Provider: Mary Gao I. Admit Provider: Elena Piper Primary Care Provider: Lisa Umana Other Providers: Elena Piper Other Interventions: Discharge Summary Assessment (RN) Last Done: 08/30/21 12:09
== END 2021-08-30 13:33 | disposition home or self-care (01) | DRG 177 ==
LOC: ED 11:56 → 2S 19:26 → SUATTDRO 19:26 → 2S 20:15 → 3W 08-27 09:51